=== PATIENT | male | born 1955 | race Caucasian/White ===

== ENCOUNTER 2019-12-23 14:19 | Outpatient (CLI) | payer MEDICARE ==
--- NOTE | 2019-12-23 15:35 | RAD ---
FOUR VIEWS LUMBAR SPINE: HISTORY: Low back pain. COMPARISON: None. FINDINGS: Five lumbar-type vertebrae. Laminectomy defect at L4 and L5. Recess sacrum and bony pelvis are unremarkable. Mild loss of disc space height and osteophyte formation from T12-L1 to L3-L4 as well as L5-S1. Modera te degenerative change at L4-L5. Spondylolisthesis: L2-L3: 6.8 mm of retrolisthesis in the neutral position; 5.7 mm of retrolisthesis with extension; 5.1 mm with flexion. L3-L4: 3.6 mm of retrolisthesis with flexion; 5 mm with extension; 3.6 mm with flexion. IMPRESSION: Spondylolisthesis as above. Transcribed Date/Time: 12/23/2019 3:47 PM
--- NOTE | 2019-12-23 15:42 | RAD ---
EXAM: XR Cervical Spine 4 View Min PROVIDED CLINICAL HISTORY: Neck pain and right shoulder pain. COMPARISON: None FINDINGS: C1 to the cervicothoracic junction is seen on the lateral view. There is straightening of the normal cervical lordotic curvature. There is trace anterolisthesis of C3 on C4 likely due to facet degenerative changes at this level. The anterolisthesis does correct on extension compared to flexion . There are multilevel osteophytes present with degenerative changes greatest at the C4-5 and C5-6 levels where there is narrowing of the intervertebral disc spaces at these levels with prominent oste ophytes anteriorly. No obvious fracture is seen. Prevertebral soft tissues are within normal limits. Posterior elements C7 vertebral body are obscured on the lateral view as well as on the swimm er's view due to overlying shoulder prosthesis. IMPRESSION: Degenerative changes in the cervical spine with slight grade 1 anterolisthesis of C3 on C4 which does improve on extension compared to flexion and neutral positioning.
--- NOTE | 2019-12-23 16:39 | MRI ---
EXAM: MRI lumbar spine without and with contrast HISTORY: Bilateral hip and leg pain. Back pain. COMPARISON: None TECHNIQUE: Multiple planar multisequence MR images were obtained of the lumbar spine without and with contrast. FINDINGS: Generalized disc desiccation is seen. Endplate degenerative changes are seen throughout the lumbar sp ine. 1.5 cm cyst in the right kidney. The patient has had laminectomies in the lower lumbar spine. The conus medullaris terminates normally at T12/L1. No abnormal enhancement is seen on this examination. Questionable abnormality seen on the fat-suppres sed postcontrast images is likely artifactual and is seen at multiple levels. T12/L1: No significant posterior bulge or protrusion. No posterior facet arthrosis. No central elenita l stenosis. No neural foraminal stenosis L1/2: No significant posterior bulge or protrusion. No posterior facet arthrosis. No central canal stenosis. No neural foraminal stenosis L2/3: Moderate disc osteophyte complex. Moderate bilateral posterior facet arthrosis. Moderate to s evere central canal stenosis. Moderate bilateral neural foraminal stenosis L3/4: Small disc osteophyte complex. Mild bilateral posterior facet arthrosis. Mild central canal s tenosis. Moderate bilateral neural foraminal stenosis L4/5: A large disc osteophyte complex. Mild bilateral posterior facet arthrosis. No central canal s tenosis. Severe bilateral neural foraminal stenosis L5/S1: Large disc osteophyte complex. Mild bilateral posterior facet arthrosis. No central canal st enosis. Severe bilateral neural foraminal stenosis IMPRESSION: Severe degenerative changes of the lumbar spine as above. No central canal stenosis is seen at L4/5 a nd L5/S1 but there is bilateral severe neural foraminal stenosis at these levels. This exam was reviewed with Dr. Vila who agrees with the findings and impression.
--- NOTE | 2019-12-23 16:40 | MRI ---
MRI Cervical spine without contrast: HISTORY: Neck pain and right shoulder pain. COMPARISON: None FINDINGS: The craniocervical junction is unremarkable. No significant cord signal abnormality. Paravertebral soft tissues have a normal appearance and normal signal intensity. There is mild motion artifact on axial images which does degrade image quality. C1-2:No significant stenosis. There are mild degenerative changes seen at the articulation of the odo ntoid with anterior arch of C1. C2-3: There is a central disc protrusion which narrows the ventral subarachnoid space. Neural foramin a are patent. Mild facet degenerative changes are present greater on the left. C3-4: Mild loss of intervertebral disc height. Broad-based disc osteophyte complex is present. Facet degenerative changes are noted. There is mild generalized concentric narrowing of the spinal canal with slight flattening of the anterior aspect of the spinal cord. Mild right and moderate to severe l eft-sided neural foraminal narrowing is present. C4-5: There is loss of intervertebral disc height. There is broad-based disc osteophyte complex. This narrows the ventral subarachnoid space and results in mild flattening of the anterior aspect of the spinal cord. Facet degenerative changes are present at this level. Moderate to severe bilateral n eural foraminal narrowing is present greater on the right. C5-6: There is loss of intervertebral disc height. Endplate degenerative changes are present at this level. There is a broad-based disc osteophyte complex with left paracentral disc protrusion. This narrows the ventral subarachnoid space, and there is mild mass effect on the left anterolateral aspec t of the spinal cord. Facet degenerative changes are present. Moderate to severe right and severe left-sided neural foraminal narrowing are present. C6-7: There is loss of intervertebral disc height. There is broad-based disc osteophyte complex with central disc protrusion. There is narrowing of the central spinal canal with flattening of the anterior aspect of the spinal cord. Moderate to severe left and severe right-sided neural foraminal n arrowing are present. C7-T1: Mild disc osteophyte complex is present with tiny central disc protrusion. This results in sli ght flattening of ventral subarachnoid space. The neural foramina are patent. IMPRESSION: Multilevel degenerative changes throughout the cervical spine with varying degrees of neural foramina l narrowing. There is motion at multiple levels which does degrade image quality, but there is suggestion of moderate and severe degrees of neural foraminal narrowing at multiple levels.
== END 2019-12-23 14:20 | disposition home or self-care (01) ==
LOC: TBSIIMAG 14:19
PROVIDERS: ATTEND Physician Assistant
DX: M51.16 Intervertebral disc disorders with radiculopathy, lumbar region (principal); M54.2 Cervicalgia; M25.511 Pain in right shoulder; M25.559 Pain in unspecified hip; M79.604 Pain in right leg; M79.605 Pain in left leg; M47.812 Spondylosis without myelopathy or radiculopathy, cervical region; M43.12 Spondylolisthesis, cervical region; M43.16 Spondylolisthesis, lumbar region; M48.02 Spinal stenosis, cervical region; M48.061 Spinal stenosis, lumbar region without neurogenic claudication; M48.07 Spinal stenosis, lumbosacral region
CPT/HCPCS: 72050; 72110; 72141; 72148; 72158; 82565

== ENCOUNTER 2020-04-03 06:54 | Outpatient (CLI) | payer MEDICARE, OTHER ==
[2020-04-03 14:22] LABS: Hemoglobin 14.5 g/dL (14.0-18.0); Mean Corpuscular HGB CONC 31.8 g/dL (32.0-36.0); Mean Corpuscular Hemoglobin 30.4 pg (27.0-31.0); Mean Corpuscular Volume 95.5 fL (78.0-98.0); Mean Platelet Volume 8.5 fL (7.4-10.4); Platelet Count 255 thou/uL (130-400); RBC Distribution Width 12.9 % (11.5-14.5); Red Blood Cell (RBC) Count 4.79 mill/uL (4.70-6.10); White Blood Cell (WBC) Count 6.8 thou/uL (4.8-10.8)
[2020-04-03 14:29] LABS: PTT 30.9 SEC (22.9-36.1); Prothrombin Time 13.2 sec (12.0-14.7)
[2020-04-03 14:43] LABS: Anion Gap 13 mmol/L (10-20); BUN (Urea Nitrogen) 13 mg/dL (8.4-25.7); Calc. Creatinine Clearance 0 mL/min (70-130); Calcium 9.8 mg/dL (7.8-10.44); Carbon Dioxide 24 mmol/L (23-31); Chloride 105 mmol/L (98-107); Estimated GFR-MDRD 81; Glucose 82 mg/dL (80-115); Sodium 138 mmol/L (136-145)
[2020-04-04 19:51] LABS: SARS-CoV-2 MS2 Positive; SARS-CoV-2 N Gene Negative; SARS-CoV-2 S Gene Negative; SARS-CoV-2 orf1ab Negative
--- NOTE | 2020-04-10 23:27 | EKG ---
Test Reason : Blood Pressure : / mmHG Vent. Rate : 070 BPM Atrial Rate : 070 BPM P-R Int : 248 ms QRS Dur : 100 ms QT Int : 414 ms P-R-T Axes : 056 031 009 degrees QTc Int : 447 ms Sinus rhythm with 1st degree A-V block Otherwise normal ECG No previous ECGs available Confirmed by Kirk VARMA ([id number]) on 04/10/2020 11:27:43 PM Referred By: GERARDO Confirmed By:Kirk VARMA
== END 2020-04-03 06:55 | disposition home or self-care (01) ==
LOC: LABBT 06:54
PROVIDERS: ATTEND Surgery
DX: Z01.818 Encounter for other preprocedural examination (principal); Z11.59 Encounter for screening for other viral diseases
CPT/HCPCS: 80048; 85027; 85610; 85730; 93005; U0003; 87635; 93010

== ENCOUNTER 2020-04-07 05:58 | Day surgery (SDC) | payer MEDICARE ==
[2020-04-07] MEDS ORDERED: Thrombin 5000 UNITS/5 ML VIAL ONE ×2 (06:35→10:17)
[2020-04-07] MEDS ORDERED: Fentanyl 100 MCG/2 ML VIAL ONE ×3 (06:55→12:24)
[2020-04-07] MEDS ORDERED: Glycopyrrolate 0.2 MG/ML 5 ML SYRINGE ONE (10:41)
[2020-04-07] MEDS ORDERED: Ondansetron PF 4 MG/2 ML Vial ONE (10:41)
[2020-04-07] MEDS ORDERED: Lidocaine 1% PF 5 ML VIAL ONE (10:41)
[2020-04-07] MEDS ORDERED: Dexamethasone 20 MG/5 ML VIAL ONE (10:41)
[2020-04-07] MEDS ORDERED: PHENYLEPHRINE-NS 100 MCG/ML 10 ML SYRINGE ONE (10:41)
[2020-04-07] MEDS ORDERED: PROPOFOL 200 MG/20 ML VIAL ONE (10:41)
[2020-04-07] MEDS ORDERED: Labetalol HCl 100 MG/20 ML VIAL ONE ×2 (10:41→10:56)
[2020-04-07] MEDS ORDERED: Rocuronium Bromide 10 MG/ML (10ML VIAL) ONE (10:41)
[2020-04-07] MEDS ORDERED: Ondansetron HCl/PF 4 MG/2 ML Vial IVP PRN (11:04)
[2020-04-07] MEDS ORDERED: Promethazine HCl 25 MG/ML VIAL SLOW IVP PRN (11:04)
[2020-04-07] MEDS ORDERED: HYDROmorphone 2 MG/ML VIAL SLOW IVP PRN (11:04)
[2020-04-07] MEDS ORDERED: Promethazine HCl 25 MG/ML VIAL IM PRN (11:04)
[2020-04-07] MEDS ORDERED: HYDROmorphone 2 MG/ML VIAL ONE (11:26)
[2020-04-07] MEDS ORDERED: Milk Of Magnesia 30 ML UDCUP PO PRN (11:34)
[2020-04-07] MEDS ORDERED: Mag-Al 1200 mg/1200 mg/30 ML UDCUP PO PRN (11:34)
[2020-04-07] MEDS ORDERED: Acetaminophen 325 MG TAB PO PRN (11:34)
[2020-04-07] MEDS ORDERED: Ondansetron PF 4 MG/2 ML Vial IVP PRN (11:34)
[2020-04-07] MEDS ORDERED: Fleet Enema 133 ML BOT PR PRN (11:34)
[2020-04-07] MEDS ORDERED: Bisacodyl 10 MG SUPP PR PRN (11:34)
[2020-04-07] MEDS: Sodium Chloride 0.9% 1,000 ML IV SCH (13:05)
[2020-04-07] MEDS ORDERED: CEFAZOLIN 2 GM in Premix Bag 1 BAG IVPB SCH (14:00)
[2020-04-07 15:36] VITALS: BMI 36.3
[2020-04-07] MEDS: CEFAZOLIN 2 GM in Premix Bag 1 BAG IVPB SCH ×2 (16:06→23:44)
[2020-04-07] MEDS: traMADol HCl 50 MG TAB PO PRN ×2 (16:10→22:00)
[2020-04-07] MEDS: tiZANidine HCl 4 MG TAB PO PRN (18:51)
[2020-04-07] MEDS ORDERED: Allopurinol 300 MG TAB PO SCH (21:00)
[2020-04-07] MEDS ORDERED: Lisinopril 20 MG TAB PO SCH (21:00)
[2020-04-07] MEDS ORDERED: Amlodipine 10 MG TAB PO SCH (21:00)
[2020-04-07] MEDS ORDERED: Atorvastatin Calcium 20 MG TAB PO SCH (21:00)
[2020-04-07] MEDS ORDERED: Fenofibrate Nanocrystallized 145 MG TAB PO SCH (21:00)
[2020-04-07] MEDS: Gabapentin 300 MG CAP PO SCH (21:30)
[2020-04-07] MEDS: Acetaminophen/Codeine 30-300mg Tablet PO PRN (21:31)
[2020-04-07] MEDS: Morphine 2 MG/ML SYRINGE SLOW IVP PRN (22:05)
[2020-04-08] MEDS: Morphine 2 MG/ML SYRINGE SLOW IVP PRN (00:19)
[2020-04-08] MEDS: HYDROcodone/Acetaminophen 7.5/325 mg Tablet PO PRN ×2 (00:19→07:57)
[2020-04-08] MEDS: Sodium Chloride 0.9% 1,000 ML IV SCH (01:55)
[2020-04-08] MEDS: tiZANidine HCl 4 MG TAB PO PRN (04:09)
[2020-04-08] MEDS: traMADol HCl 50 MG TAB PO PRN (04:10)
--- NOTE | 2020-04-08 07:25 | OP ---
DATE OF PROCEDURE: 04/07/2020 GEOSPATIAL DEVELOPER: Mar Vasquez PA-C PREPROCEDURE DIAGNOSIS: Multilevel lumbar stenosis with low back and leg pain. POSTPROCEDURE DIAGNOSIS: Multilevel lumbar stenosis with low back and leg pain. PROCEDURES PERFORMED: 1. L2-L3 laminectomy, partial facetectomy, and foraminotomy. 2. Bilateral L3-L4 revision hemilaminotomy and foraminotomies with bilateral L4-L5 and bilateral L5-S1 revision hemilaminotomies and foraminotomies. 3. Right L4-L5 trans facet diskectomy. 4. Use of operative microscope for microdissection. DESCRIPTION OF PROCEDURE: After informed consent was obtained from the patient, the patient was brought to the OR. Proper patient, pause, and identification were carried out. He was placed under excellent general endotracheal anesthesia and positioned prone on the OR table. All appropriate points were padded. We identified the L2 through S1 segments and a linear sin from prior surgery was identified and drawn out. This area was sterilely cleansed, prepared, and draped. Proper patient, pause, and identification were carried out. The wound was then opened with combination of sharp, monopolar, and blunt dissection. We exposed the L2-L3 segments and localization film confirmed our area of interest. We then went on to explore the L3 through S1 bilateral facet complexes, and localization film confirmed our area of interest. We then performed L2-L3 laminectomy, partial facetectomy, and foraminotomy, bilateral L3 through S1 revision hemilaminotomies and foraminotomies. Microscope was then brought into the field for microdissection. We worked over the right L4-L5 trans facet approach for foraminal and extraforaminal diskectomy, with excellent decompression of the right L4 nerve root. We then identified the left L5-S1 segment. I did not feel it was necessary to do a diskectomy, and we had excellent decompression of common dural tube, there was no spinal fluid leak. The wound was copiously irrigated and closed in anatomic layers following sprinkling of vancomycin powder. The patient was emerged from anesthesia. Job ID: [id number]
[2020-04-08 07:57] VITALS: BP 92/62; TEMP 97.7
[2020-04-08] MEDS: Gabapentin 300 MG CAP PO SCH (07:58)
[2020-04-08] MEDS: Acetaminophen/Codeine 30-300mg Tablet PO PRN (08:51)
--- NOTE | 2020-04-08 10:01 | PRG ---
DATE OF SERVICE: 04/08/2020 Mr. Nevarez is postoperative day 1 from multilevel revision lumbar laminectomy and transfacet diskectomy. He states his leg pain is essentially the same as before surgery, although we obtained excellent decompression of the common dural tube and nerve roots. I think he simply needs time. He is ambulating, voiding on his own and tolerating orals. He is already standing up with more of an upright posture, which is an improvement already compared to before surgery. He is pleased with that. He is ambulating without a gait aid. We went over interim postoperative issues and I let him know he maybe dismissed. I will follow up in outpatient to assess his postoperative course. Job ID: [id number]
[2020-04-08] MEDS ORDERED: Prevnar 13-Val Conj/PF 0.5 ML SYRINGE IM ONE (15:45)
== END 2020-04-08 10:48 | disposition home or self-care (01) ==
LOC: SDC 05:58 → SJJU 13:18 → SDC 04-08 10:48
PROVIDERS: ATTEND Surgery
PROC: 01NB0ZZ Release Lumbar Nerve, Open Approach (ICD-10-PCS; principal; 2020-04-07)
PROC: 0ST20ZZ Resection of Lumbar Vertebral Disc, Open Approach (ICD-10-PCS; 2020-04-07)
DX: M48.061 Spinal stenosis, lumbar region without neurogenic claudication (principal); M51.16 Intervertebral disc disorders with radiculopathy, lumbar region; I10 Essential (primary) hypertension; E78.5 Hyperlipidemia, unspecified; M19.90 Unspecified osteoarthritis, unspecified site; Z79.899 Other long term (current) drug therapy
CPT/HCPCS: 76000; J0690; J1100; J1170; J2001; J2270; J2405; J2704; J3010; J3370

== ENCOUNTER 2022-03-15 09:27 | Outpatient (CLI) | payer MEDICARE, OTHER | END 2022-03-15 09:28 | disposition home or self-care (01) | LOC: TBSIIMAG 09:27 | PROVIDERS: ATTEND Physician Assistant | DX: M54.12 Radiculopathy, cervical region (principal); Z98.1 Arthrodesis status | CPT/HCPCS: 72040 ==

== ENCOUNTER 2024-08-15 10:10 | Outpatient (CLI) | payer MEDICARE, OTHER ==
[2024-08-15 11:47] LABS: #Basophils 0.06 10x3/uL (0.0-0.2); %Basophils 0.8 % (0.0-1.0); %Eosinophils 2.1 % (0.0-10.0); %Lymphocytes 26.6 % (21.0-51.0); %Neutrophils 57.4 % (42.0-75.0); Hematocrit 45.2 % (42.0-52.0); Mean Corpuscular HGB CONC 33.2 g/dL (32.0-36.0); Mean Corpuscular Hemoglobin 31.6 pg (27.0-31.0); Mean Corpuscular Volume 95.2 fL (78.0-98.0); Platelet Count 218 10x3/uL (130-400); RBC Distribution Width 15.5 % (11.5-14.5); Red Blood Cell (RBC) Count 4.75 mill/uL (4.70-6.10)
== END 2024-08-15 10:11 | disposition home or self-care (01) ==
LOC: LABBT 10:10
PROVIDERS: ATTEND Orthopaedic Surgery Hand Surgery
DX: Z01.818 Encounter for other preprocedural examination (principal); G56.01 Carpal tunnel syndrome, right upper limb; G56.21 Lesion of ulnar nerve, right upper limb
CPT/HCPCS: 85025; 93005; 93010

== ENCOUNTER 2024-08-20 07:25 | Day surgery (SDC) | payer MEDICARE, OTHER ==
[2024-08-15 10:24] VITALS: BMI 33.0
[2024-08-20] MEDS ORDERED: Bacitracin Zinc Ointment 30 gm TUBE ONE (08:58)
[2024-08-20] MEDS ORDERED: Betamet Acet/Betamet Na Ph 30 MG/5 ML VIAL ONE (08:58)
[2024-08-20] MEDS ORDERED: Bupivacaine PF 0.5% 30 ML VIAL ONE (08:59)
[2024-08-20] MEDS ORDERED: Midazolam HCl 2 mg/2 ml Vial ONE (09:39)
[2024-08-20] MEDS ORDERED: Acetaminophen 500 MG TAB ONE (09:39)
[2024-08-20] MEDS ORDERED: PROPOFOL 20 ML ONE (09:48)
[2024-08-20] MEDS ORDERED: fentaNYL 50 mcg/mL 1 mL Vial ONE ×4 (09:48→14:50)
[2024-08-20] MEDS ORDERED: Lidocaine 1% PF 5 ML VIAL ONE (09:49)
[2024-08-20] MEDS ORDERED: CEFAZOLIN 2 GM VIAL ONE (10:40)
[2024-08-20] MEDS ORDERED: Sodium Chloride 0.9% 100 ML ONE (10:41)
[2024-08-20] MEDS ORDERED: Sevoflurane 250 ML INH ANEST BOTTLE ONE (12:42)
[2024-08-20] MEDS ORDERED: Dexamethasone 20 MG/5 ML VIAL ONE (12:55)
[2024-08-20] MEDS ORDERED: Ondansetron PF 4 MG/2 ML Vial ONE (12:55)
[2024-08-20] MEDS ORDERED: Ketorolac Tromethamine 30 MG (1 mL) VIAL ONE (14:15)
[2024-08-20] MEDS ORDERED: HYDROcodone/Acetaminophen 5/325 mg Tablet ONE (15:14)
== END 2024-08-20 17:00 | disposition home or self-care (01) ==
LOC: SDC 07:25
PROVIDERS: ATTEND Orthopaedic Surgery Hand Surgery
PROC: 01N50ZZ Release Median Nerve, Open Approach (ICD-10-PCS; principal; 2024-08-20)
DX: G56.01 Carpal tunnel syndrome, right upper limb (principal); G56.23 Lesion of ulnar nerve, bilateral upper limbs; E78.5 Hyperlipidemia, unspecified; I48.91 Unspecified atrial fibrillation; I11.0 Hypertensive heart disease with heart failure; I15.0 Renovascular hypertension; Z87.891 Personal history of nicotine dependence; Z98.890 Other specified postprocedural states; Z79.899 Other long term (current) drug therapy
CPT/HCPCS: 64718; 64719; 64721; 71045; A6223; C1713; J0665; J1100; J1885; J2250; J2405; J2704; J3010; 88304; J0702